=== PATIENT | male | born 1955 | race Caucasian/White ===

== ENCOUNTER 2019-05-22 07:40 | Day surgery (SDC) | payer OTHER, MEDICARE ==
[~2019-05-22] VITALS: Ht 180.3 cm; Wt 95.3 kg
[2019-05-22 08:04] LABS: BASOPHILS 0.4 % (0-2); EOSINOPHILS 3.4 % (0-7); HEMATOCRIT 38.2 % (42.0-54.0); HEMOGLOBIN 11.8 g/dL (13.5-17.5); IMMATURE GRANULOCYTES 0.1 % (0-5); LYMPHOCYTES 24.8 % (15-50); MCH 29.6 pg (26.0-34.0); MCHC 30.9 g/dL (31.0-37.0); MCV 95.7 fL (80.0-100.0); MONOCYTES 11.9 % (2-11); NEUTROPHILS 59.4 % (40-80); PLATELET COUNT 243 10x3/uL (130-400); RBC 3.99 10x6/uL (4.20-6.10); RDW 16.2 % (11.5-14.5); WBC 7.3 10x3/uL (4.8-10.8)
[2019-05-22 08:12] LABS: ANION GAP 16.6 mmol/L (8-16); CARBON DIOXIDE 26.8 mmol/L (21.0-32.0); CREATININE - SERUM 6.3 mg/dL (0.6-1.3); POTASSIUM - SERUM 4.4 mmol/L (3.5-5.1)
[2019-05-22 08:44] LABS: INR 1.18 (0.85-1.17); PROTIME 14.4 SECONDS (11.6-15.0)
[2019-05-22] MEDS ORDERED: PLAVIX75 MG PO (10:50)
[2019-05-22] MEDS ORDERED: ZOLOFT50 MG PO (10:51)
[2019-05-22] MEDS ORDERED: GABAPENTIN100 MG PO (10:51)
[2019-05-22] MEDS ORDERED: BAYER CHEWABLE81 MG PO (10:51)
[2019-05-22] MEDS ORDERED: LIPITOR10 MG PO (10:52)
[2019-05-22] MEDS ORDERED: HUMALOG 30100 UNITS/ SC (10:53)
[2019-05-22 10:54] VITALS: Ht 180.3 cm; Wt 95.3 kg
[2019-05-22] MEDS ORDERED: ULTRAM50 MG PO (14:11)
--- NOTE | 2019-05-24 11:16 | OP ---
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 OPERATION PERFORMED: Ultrasound-guided placement of IV catheter in the left greater saphenous vein just above the knee done with micropuncture technique and placement of a 6-Uzbek introducer sheath then open ligation of the left arm radiocephalic arterial venous fistula followed by removal of peritoneal dialysis catheter. SURGEON: Ambrose Barbosa MD ANESTHESIA: General with LMA per [employer]. PREOPERATIVE NOTE: Mr. Motley is a 64-year-old diabetic white male patient with end-stage renal disease, presently on hemodialysis with a TVC in the right IJV. He has a left wrist radiocephalic fistula, which I do not believe has ever been used and he has recently undergone amputation of the right second finger and has gangrenous eschar at the incision sites on the lateral aspect of the third finger. He is known to have quite severe peripheral arterial occlusive disease, particularly in the extremities and in the hands and digits; however, he has had a positive steal study and clinically this is a steal syndrome and a patient with diabetes would be very much inclined to have this particular syndrome. He is brought to the operating room today to ligate this AV fistula. The patient has not done well with peritoneal dialysis. He has had at least 1 episode of peritonitis and a catheter infection and he says he has had difficulties with hyperglycemia and has not had adequate dialysis. Therefore, we will be removing the peritoneal dialysis catheter also. DESCRIPTION OF PROCEDURE: Under general anesthesia in supine position, the patient was prepped and draped in sterile manner. The folding machine operator had difficulty finding a peripheral IV site and so using sterile technique, and the [employer] duplex ultrasound for guidance, I inserted a micropuncture needle and guidewire into the greater saphenous vein in the distal left thigh and then placed a 6-Uzbek introducer sheath and sutured in place and this was used for IV access during the procedure. OPERATIVE REPORT [id number] JB MOTLEY JR The patient was then completely prepped and draped. I examined the left arm fistula with a duplex ultrasound and identified only 1 significant runoff vessel in the cephalic vein. I made a longitudinal incision directly over about an inch and a half or so proximal to the anastomosis. I exposed the vein and dissected around it and ligated it doubly with 2-0 silk ligatures. This resulted in increased high resistance flow signals within the radial artery and obliterated the fistula. The wound was closed with running intracuticular Monocryl and Dermabond glue. It was dressed with Maxorb Ag, Tegaderm, and Cavilon skin prep. The abdomen was then examined, the dialysis catheter exited rather far laterally in the right lower quadrant of the abdomen. I found that the superficial cuff was actually very densely adherent to the dermis. I excised a small divot of skin from around the catheter and then dissected the catheter from the surrounding structures as much as possible with blunt dissection without enlarging the incision. I was able to free the catheter cuff fully. I then by palpation identified a site midway between the catheter exit site in the umbilicus where I could palpate what I thought was the deep or second cuff on this catheter. I made a longitudinal incision there, a paramedian type incision about an inch long below the level of the umbilicus. I exposed the catheter and dissected from surrounding structures, clamped and divided and removed the external segment and this was discarded. The intraperitoneal segment was then dissected from the deeper subcutaneous tissues and the rectus sheath. It was freed and removed along with the coiled intraabdominal portion of the catheter. Hemostasis was obtained with electrocautery and the defect in the anterior rectus sheath was approximated with 2 [id number] 0 Vicryl sutures, placed horizontally. The wound was infiltrated with 0.25% Marcaine without epinephrine and closed with a few interrupted inverted 3-0 Vicryl and the skin was closed with franco. The skin at the catheter exit site was also loosely approximated with franco. Both sites were then dressed with Maxorb Ag, Tegaderm, and Cavilon skin prep. He was at that point awakened and in stable condition taken to the recovery room. Blood loss during the operation about 5 cc. None was replaced. Sponges, instruments, and needles were accounted for. No drain was used and I did not submit a surgical specimen for histopathology. I plan for him to go home today with tramadol for pain and an ice pack and have him resume activities and continue his same hemodialysis, schedule diet, activities, medications, etc. I will see him back in my office for wound check and staple removal next week. Will need then to begin to plan for another hemodialysis access. TRANSINT:[id number] Voice Confirmation ID: [id number] DOCUMENT ID: [id number] AMBROSE BARBOSA MD at 1116 CC: STU MENDOZA MD, STU AMBRIZ MD and STU FORTUNE [id number] DICTATION DATE: 05/22/19 144 VISION THERAPIST: 05/22/19 [id number] [facility] [place] 05/22/19 [id number] [place] [address]
== END 2019-05-22 17:35 | disposition home or self-care (01) ==
LOC: D.OPS 07:40
PROVIDERS: Surgery; ATTEND Internal Medicine Nephrology
DX: E11.22 Type 2 diabetes mellitus with diabetic chronic kidney disease (principal); I12.0 Hypertensive chronic kidney disease with stage 5 chronic kidney disease or end stage renal disease; N18.6 End stage renal disease; Z99.2 Dependence on renal dialysis; T82.898A Other specified complication of vascular prosthetic devices, implants and grafts, initial encounter; I70.268 Atherosclerosis of native arteries of extremities with gangrene, other extremity; T85.71XA Infection and inflammatory reaction due to peritoneal dialysis catheter, initial encounter; Z01.812 Encounter for preprocedural laboratory examination

== ENCOUNTER → 2019-06-25 07:41 | Outpatient (CLI) | payer OTHER, MEDICARE ==
[2019-05-22 10:54] VITALS: BMI 29.3
[~2019-06-25 07:41] MED LIST: BAYER CHEWABLE81 MG PO; GABAPENTIN100 MG PO; HUMALOG 30100 UNITS/ SC; LIPITOR10 MG PO; PLAVIX75 MG PO; ULTRAM50 MG PO; ZOLOFT50 MG PO
== END | disposition home or self-care (01) ==
LOC: D.CT 07:41
PROVIDERS: ATTEND Surgery
DX: N18.6 End stage renal disease (principal)

== ENCOUNTER → 2019-11-06 17:37 | Outpatient (CLI) | payer OTHER, MEDICARE ==
[2019-05-22 10:54] VITALS: BMI 29.3
== END | disposition home or self-care (01) ==
LOC: D.LABREF 17:37
PROVIDERS: ATTEND Podiatrist Foot & Ankle Surgery
DX: E11.621 Type 2 diabetes mellitus with foot ulcer (principal); N18.6 End stage renal disease; L97.422 Non-pressure chronic ulcer of left heel and midfoot with fat layer exposed

== ENCOUNTER → 2020-02-15 17:28 | Outpatient (CLI) | payer OTHER, MEDICARE ==
[2019-05-22 10:54] VITALS: BMI 29.3
== END | disposition home or self-care (01) ==
LOC: D.LABREF 17:28
PROVIDERS: ATTEND Podiatrist Foot & Ankle Surgery
DX: L03.116 Cellulitis of left lower limb (principal)